=== PATIENT | female | born 1965 | race Caucasian/White ===

== ENCOUNTER 2024-10-03 17:13 | Inpatient (IN) | payer OTHER ==
[~2024-10-03] VITALS: Ht 162.6 cm; Wt 95.8 kg
[2024-10-03] MEDS ORDERED: ALBUTEROL FS 2.5 MG/3 ML VIAL.NEB ONE (17:23)
[2024-10-03] MEDS ORDERED: IPRATROPIUM NEB FS 0.5 MG/2.5 ML AMPUL.NEB ONE (17:23)
[2024-10-03] MEDS ORDERED: Magnesium 1GM/D5W 100ML PREMIX 200 ML IV ONE (17:26)
[2024-10-03] MEDS: IPRATROPIUM NEB FS 0.5 MG/2.5 ML AMPUL.NEB NEB ONE (17:35)
[2024-10-03] MEDS: Magnesium 1GM/D5W 100ML PREMIX 200 ML IV ONE (17:35)
[2024-10-03] MEDS: ALBUTEROL FS 2.5 MG/3 ML VIAL.NEB CONTNEB ONE (17:35)
[2024-10-03 17:54] LABS: CALCIUM, SERUM 8.8 mg/dL (8.5-10.1); CREATININE 0.6 mg/dL (0.6-1.3); SODIUM SERUM 134 mmol/L (136-145); UREA NITROGEN, BLOOD 9 mg/dL (7-18)
[2024-10-03 17:58] LABS: PLATELET COUNT (AUTO) 294 K/uL (150-450); RED BLOOD CELL COUNT(AUTO) 4.89 MIL/uL (4.0-5.2); RED CELL DISTRIBUTION WIDTH 15.4 % (11.5-15.0); WHITE BLOOD COUNT (AUTO) 8.6 K/uL (4.3-11.0)
[2024-10-03] MEDS ORDERED: LUMA42CA PO (17:58)
[2024-10-03] MEDS ORDERED: ESCI10TA PO (17:58)
[2024-10-03] MEDS ORDERED: EPIN0.3A4 IM (17:59)
[2024-10-03] MEDS ORDERED: FOLI0.4T6 PO (17:59)
[2024-10-03] MEDS ORDERED: GABA600T12 PO (17:59)
[2024-10-03] MEDS ORDERED: LOPE2CAP40 PO (17:59)
[2024-10-03] MEDS ORDERED: MONT10TA22 PO (17:59)
[2024-10-03] MEDS ORDERED: TRAM50TA2 PO (17:59)
[2024-10-03] MEDS ORDERED: SENN-261 PO (17:59)
[2024-10-03] MEDS ORDERED: ACET-2030 PO (17:59)
[2024-10-03] MEDS ORDERED: QUET50TA PO (17:59)
[2024-10-03] MEDS ORDERED: LEVO50TA PO (17:59)
[2024-10-03] MEDS ORDERED: MAGN400O6 PO (17:59)
[2024-10-03] MEDS ORDERED: CYAN-51 PO (17:59)
[2024-10-03] MEDS ORDERED: OXCA150T13 PO (17:59)
[2024-10-03] MEDS ORDERED: ALBUT2 CONTNEB (17:59)
[2024-10-03 18:01] LABS: ASPARTATE AMINOTRANSFERASE 18 U/L (15-37); TOTAL PROTEIN, SERUM 7.0 g/dL (6.4-8.2)
[2024-10-03 18:06] LABS: ABG BASE EXCESS 1.3 mmol/L (-2.0-3.0); ABG OXYGEN SATURATION 99.5 % (94.0-98.0); ABG PCO2 43.6 mmHg (32.0-45.0); ABG PH 7.401 (7.350-7.450); ABG PO2 473.9 mmHg (83.0-108.0); ABG TOTAL HEMOGLOBIN 15.8 G/dL (12.0-16.0); SET RATE, BG 20.0; SITE, ABG LEFT RADIAL
[2024-10-03 18:16] LABS: LACTIC ACID 2.4 mmol/L (0.4-2.0)
[2024-10-03] MEDS: IV NS 0.9% 1,000 ML BAG IV ONE (19:37)
[2024-10-03] MEDS: CEFTRIAXONE 1GM BAG (ER ONLY) 50 ML IV ONE (19:38)
[2024-10-03] MEDS: AZITHROMYCIN 500 MG in IV D5W 250 ML IV ONE (20:10)
[2024-10-03] MEDS ORDERED: MAGNESIUM HYDROXIDE 30 ML UDC PO PRN (20:30)
[2024-10-03] MEDS ORDERED: ACETAMINOPHEN 325 MG TABLET PO PRN (20:30)
[2024-10-03] MEDS ORDERED: ONDANSETRON HCL/PF 4 MG/2 ML VIAL IVP PRN (20:30)
[2024-10-03] MEDS ORDERED: MAG HYDROX/AL HYDROX/SIMETH 30 ML UDC PO PRN (20:30)
[2024-10-03 21:51] LABS: AMPHETAMINE, URINE NEGATIVE (NEGATIVE); BARBITURATE, URINE NEGATIVE (NEGATIVE); BENZODIAZEPINE, URINE NEGATIVE (NEGATIVE); CANNABINOID, URINE NEGATIVE (NEGATIVE); COCCAINE, URINE NEGATIVE (NEGATIVE); OPIATE, URINE NEGATIVE (NEGATIVE)
[2024-10-04] VITALS (21 sets, daily range): BP systolic 110–138; BP diastolic 60–93; TEMP 97.3–98; O2SAT 94–100
[2024-10-04] MEDS ORDERED: ENOXAPARIN SODIUM 40 MG/0.4 ML DISP.SYRIN SQ ONE (00:30)
[2024-10-04] MEDS: ENOXAPARIN SODIUM 40 MG/0.4 ML DISP.SYRIN SQ SCH (00:41)
[2024-10-04] MEDS: IV NS 0.9% 1,000 ML IV PRN (00:43)
[2024-10-04] MEDS ORDERED: ALBUTEROL FS 2.5 MG/3 ML VIAL.NEB ONE (02:02)
[2024-10-04] MEDS ORDERED: IPRATROPIUM NEB FS 0.5 MG/2.5 ML AMPUL.NEB ONE (02:02)
[2024-10-04] MEDS: ALBUTEROL FS 2.5 MG/3 ML VIAL.NEB NEB PRN (02:07)
[2024-10-04] MEDS: IPRATROPIUM NEB FS 0.5 MG/2.5 ML AMPUL.NEB NEB PRN (02:07)
[2024-10-04 06:35] LABS: PLATELET COUNT (AUTO) 280 K/uL (150-450); RED BLOOD CELL COUNT(AUTO) 4.74 MIL/uL (4.0-5.2); RED CELL DISTRIBUTION WIDTH 15.6 % (11.5-15.0); WHITE BLOOD COUNT (AUTO) 6.8 K/uL (4.3-11.0)
[2024-10-04 06:49] LABS: LACTIC ACID 1.6 mmol/L (0.4-2.0)
[2024-10-04 07:03] LABS: ASPARTATE AMINOTRANSFERASE 14 U/L (15-37); CALCIUM, SERUM 8.6 mg/dL (8.5-10.1); CREATININE 0.6 mg/dL (0.6-1.3); PHOSPHORUS 3.8 mg/dL (2.5-4.9); SODIUM SERUM 140 mmol/L (136-145); TOTAL PROTEIN, SERUM 6.6 g/dL (6.4-8.2); UREA NITROGEN, BLOOD 7 mg/dL (7-18)
[2024-10-04 07:24] LABS: NT-PRO BNP 77 pg/mL (0-125)
[2024-10-04 07:43] LABS: ABG BASE EXCESS 1.0 mmol/L (-2.0-3.0); ABG OXYGEN SATURATION 96.8 % (94.0-98.0); ABG PCO2 47.3 mmHg (32.0-45.0); ABG PH 7.372 (7.350-7.450); ABG PO2 91.0 mmHg (83.0-108.0); ABG TOTAL HEMOGLOBIN 15.5 G/dL (12.0-16.0); FLOW, BLOOD GAS 2.00 L/min (0.00-30.00); FRACTIONATED INSPIRED OXYGEN 28.0 %; SITE, ABG RIGHT RADIAL
[2024-10-04] MEDS: PANTOPRAZOLE 40 MG VIAL IV SCH (08:41)
[2024-10-04] MEDS: ALBUTEROL FS 2.5 MG/3 ML VIAL.NEB NEB SCH (10:20)
[2024-10-04] MEDS: IPRATROPIUM NEB FS 0.5 MG/2.5 ML AMPUL.NEB NEB SCH (11:00)
[2024-10-04] MEDS: AZITHROMYCIN 500 MG in IV D5W 250 ML IV SCH (19:08)
[2024-10-04] MEDS: CEFTRIAXONE 1 G in IV D5W 50 ML IV SCH (20:18)
[2024-10-04] MEDS: TRAZODONE 50 MG TABLET PO PRN (20:42)
[2024-10-05] VITALS (16 sets, daily range): BP systolic 119–129; BP diastolic 60–77; TEMP 97.3–97.9; O2SAT 92–99
[2024-10-05] MEDS: PANTOPRAZOLE 40 MG TABLET.DR PO SCH (08:53)
[2024-10-05] MEDS: AZITHROMYCIN 250 MG TABLET PO SCH (18:22)
[2024-10-06] VITALS (7 sets, daily range): BP systolic 120; BP diastolic 68; TEMP 98.6; O2SAT 92–98
[2024-10-06] MEDS ORDERED: FLUT1BLS6 IH (11:10)
[2024-10-06] MEDS ORDERED: PRED20TA PO (11:11)
== END 2024-10-06 14:43 | DRG 140 ==
LOC: ER 17:18 → ICU 10-04 08:08 → MED 10-04 13:46 → TELE 10-04 14:15 → MED 10-05 14:42
PROVIDERS: ADMIT Nurse Practitioner Family; ATTEND Nurse Practitioner Acute Care
PROC: 5A09357 Assistance with Respiratory Ventilation, Less than 24 Consecutive Hours, Continuous Positive Airway Pressure (ICD-10-PCS; principal; 2024-10-04)
DX: J44.1 Chronic obstructive pulmonary disease with (acute) exacerbation (principal); J96.01 Acute respiratory failure with hypoxia; D68.59 Other primary thrombophilia; E87.1 Hypo-osmolality and hyponatremia; E87.20 Acidosis, unspecified; R53.1 Weakness; R26.9 Unspecified abnormalities of gait and mobility; Z91.018 Allergy to other foods; Z79.51 Long term (current) use of inhaled steroids; Z79.890 Hormone replacement therapy; Z79.899 Other long term (current) drug therapy; F17.200 Nicotine dependence, unspecified, uncomplicated; E66.9 Obesity, unspecified; Z68.36 Body mass index [BMI] 36.0-36.9, adult; E03.9 Hypothyroidism, unspecified; G47.33 Obstructive sleep apnea (adult) (pediatric); Z85.118 Personal history of other malignant neoplasm of bronchus and lung
CPT/HCPCS: 36415; 36600; 71045-TC; 71250-TC; 80048-TC; 80076-TC; 82803-TC; 82962-TC; 83605-TC; 83735-TC; 83880; 84100-TC; 84484-TC; 85025-TC; 85378-TC; 87040-TC; 87081-TC; 94761-TC; 94799-TC; A4223; G0378; J0456; J0696; J1650; J2470; J2919; J3475; J7030; J7040; J7060

== ENCOUNTER 2024-11-17 22:37 | Inpatient (IN) | payer OTHER ==
[~2024-11-17] VITALS: Ht 154.9 cm; Wt 95.7 kg
[~2024-11-17 22:37] MED LIST: ACET-2030 PO; ALBUT2 CONTNEB; CYAN-51 PO; EPIN0.3A4 IM; ESCI10TA PO; FLUT1BLS6 IH; FOLI0.4T6 PO; GABA600T12 PO; LEVO50TA PO; LOPE2CAP40 PO; LUMA42CA PO; MAGN400O6 PO; MONT10TA22 PO; OXCA150T13 PO; PRED20TA PO; QUET50TA PO; SENN-261 PO; TRAM50TA2 PO
[2024-11-18] VITALS (13 sets, daily range): BP systolic 123–149; BP diastolic 65–80; TEMP 97.3–98.6; O2SAT 93–98
[2024-11-18] MEDS: ALBUTEROL FS 2.5 MG/3 ML VIAL.NEB NEB ONE ×2 (00:10→01:43)
[2024-11-18] MEDS ORDERED: ALBUTEROL FS 2.5 MG/3 ML VIAL.NEB ONE ×2 (00:11→01:46)
[2024-11-18 00:16] LABS: PLATELET COUNT (AUTO) 262 K/uL (150-450); RED BLOOD CELL COUNT(AUTO) 4.45 MIL/uL (4.0-5.2); RED CELL DISTRIBUTION WIDTH 14.3 % (11.5-15.0); WHITE BLOOD COUNT (AUTO) 5.7 K/uL (4.3-11.0)
[2024-11-18 00:22] LABS: CALCIUM, SERUM 8.7 mg/dL (8.5-10.1); CREATININE 0.6 mg/dL (0.6-1.3); SODIUM SERUM 139.0 mmol/L (136-145); UREA NITROGEN, BLOOD 5.0 mg/dL (7-18)
[2024-11-18] MEDS: IPRATROPIUM NEB FS 0.5 MG/2.5 ML AMPUL.NEB NEB ONE (01:43)
[2024-11-18] MEDS ORDERED: IPRATROPIUM NEB FS 0.5 MG/2.5 ML AMPUL.NEB ONE (01:46)
[2024-11-18] MEDS ORDERED: MAG HYDROX/AL HYDROX/SIMETH 30 ML UDC PO PRN (04:30)
[2024-11-18] MEDS ORDERED: MAGNESIUM HYDROXIDE 30 ML UDC PO PRN (04:30)
[2024-11-18] MEDS ORDERED: ONDANSETRON HCL/PF 4 MG/2 ML VIAL IVP PRN (04:30)
[2024-11-18] MEDS: LEVOTHYROXINE SODIUM 50 MCG TABLET PO SCH (06:42)
[2024-11-18] MEDS: PANTOPRAZOLE 40 MG TABLET.DR PO SCH (06:42)
[2024-11-18 07:22] LABS: PLATELET COUNT (AUTO) 266 K/uL (150-450); RED BLOOD CELL COUNT(AUTO) 4.51 MIL/uL (4.0-5.2); RED CELL DISTRIBUTION WIDTH 14.4 % (11.5-15.0); WHITE BLOOD COUNT (AUTO) 5.5 K/uL (4.3-11.0)
[2024-11-18 07:34] LABS: CALCIUM, SERUM 9.1 mg/dL (8.5-10.1); CREATININE 0.7 mg/dL (0.6-1.3); PHOSPHORUS 4.2 mg/dL (2.5-4.9); SODIUM SERUM 138.0 mmol/L (136-145); UREA NITROGEN, BLOOD 6.0 mg/dL (7-18)
[2024-11-18] MEDS ORDERED: [UNRECOGNIZED DRUG - CODE] PO (08:00)
[2024-11-18] MEDS ORDERED: IPRA3AMP23 IH (08:00)
[2024-11-18] MEDS ORDERED: NEOM1OIN15 TP (08:00)
[2024-11-18] MEDS ORDERED: FLUT1BLS IH (08:00)
[2024-11-18] MEDS ORDERED: DOCU100C36 PO (08:00)
[2024-11-18] MEDS ORDERED: TIOT18CA3 IH (08:00)
[2024-11-18] MEDS ORDERED: OMEG-167 PO (08:00)
[2024-11-18] MEDS ORDERED: MELA3TAB41 PO (08:00)
[2024-11-18] MEDS ORDERED: ACET325T53 PO (08:00)
[2024-11-18] MEDS ORDERED: FLUT1DIS3 IH (08:00)
[2024-11-18] MEDS: CYANOCOBALAMIN 500 MCG TABLET PO SCH (08:08)
[2024-11-18] MEDS: FOLIC ACID 1 MG TABLET PO SCH (08:09)
[2024-11-18] MEDS: GABAPENTIN 300 MG CAPSULE PO SCH (08:09)
[2024-11-18] MEDS: ESCITALOPRAM OXALATE (10 MG) 10 MG TABLET PO SCH (08:09)
[2024-11-18] MEDS: OXCARBAZEPINE 150 MG TABLET PO SCH (08:09)
[2024-11-18] MEDS: ENOXAPARIN SODIUM 40 MG/0.4 ML DISP.SYRIN SQ SCH (08:11)
[2024-11-18] MEDS: HYDROCORTISONE ACETATE 25 MG/SUPP.RECT SUPP.RECT RC SCH (10:31)
[2024-11-18] MEDS: ACETAMINOPHEN 325 MG TABLET PO PRN (10:36)
[2024-11-18] MEDS ORDERED: LIDOCAINE 2% JEL UROJET 10 ML MM ONE (20:00)
[2024-11-18] MEDS: ALBUTEROL FS 2.5 MG/0.5 ML VIAL.NEB NEB PRN (20:37)
[2024-11-18] MEDS: IPRATROPIUM NEB FS 0.5 MG/2.5 ML AMPUL.NEB NEB PRN (20:38)
[2024-11-18] MEDS ORDERED: LUMATEPERONE TOSYLATE 42 MG PO SCH (22:00)
[2024-11-18] MEDS: QUETIAPINE FUMARATE 25 MG TABLET PO SCH (22:06)
[2024-11-18] MEDS: SENNOSIDES 8.6 MG TABLET PO SCH (22:07)
[2024-11-18] MEDS: MONTELUKAST SODIUM (10MG) 10 MG TABLET PO SCH (22:07)
[2024-11-18] MEDS: LIDOCAINE 2% JEL UROJET 10 ML MM PRN (23:04)
[2024-11-19] VITALS (7 sets, daily range): BP systolic 115–117; BP diastolic 70–80; TEMP 97.9; O2SAT 94–98
[2024-11-19] MEDS ORDERED: ALBUTEROL FS 2.5 MG/0.5 ML VIAL.NEB NEB PRN (11:00)
[2024-11-19] MEDS ORDERED: IPRATROPIUM NEB FS 0.5 MG/2.5 ML AMPUL.NEB NEB PRN (11:00)
[2024-11-19] MEDS ORDERED: LIDO30CR47 TP (11:02)
[2024-11-19] MEDS ORDERED: HYDR25SU33 RC (11:02)
== END 2024-11-19 17:59 | DRG 140 ==
LOC: ER 22:44 → MEDSG1 11-18 03:57
PROVIDERS: ADMIT Nurse Practitioner Acute Care; ATTEND Nurse Practitioner Acute Care
DX: J44.1 Chronic obstructive pulmonary disease with (acute) exacerbation (principal); E03.9 Hypothyroidism, unspecified; K64.8 Other hemorrhoids; Z79.899 Other long term (current) drug therapy; E66.9 Obesity, unspecified; F31.9 Bipolar disorder, unspecified; F41.9 Anxiety disorder, unspecified; Z20.822 Contact with and (suspected) exposure to COVID-19; Z85.118 Personal history of other malignant neoplasm of bronchus and lung; R26.9 Unspecified abnormalities of gait and mobility; Z82.49 Family history of ischemic heart disease and other diseases of the circulatory system; Z83.3 Family history of diabetes mellitus; Z91.018 Allergy to other foods; Z79.51 Long term (current) use of inhaled steroids; Z79.890 Hormone replacement therapy; F17.200 Nicotine dependence, unspecified, uncomplicated; G47.33 Obstructive sleep apnea (adult) (pediatric); I10 Essential (primary) hypertension; K64.4 Residual hemorrhoidal skin tags
CPT/HCPCS: 36415; 71045-TC; 80048-TC; 82306; 83735-TC; 84100-TC; 85025-TC; 87081-TC; 94799-TC; G0378; J1650; J3490

== ENCOUNTER 2024-11-23 17:21 | Emergency (ER) | payer OTHER ==
[~2024-11-23] VITALS: Ht 154.9 cm; Wt 93.4 kg
[~2024-11-23 17:21] MED LIST changes: -ACET-2030 PO; +ACET325T53 PO; -ALBUT2 CONTNEB; -CYAN-51 PO; +DOCU100C36 PO; +FLUT1BLS IH; -FLUT1BLS6 IH; +FLUT1DIS3 IH; -FOLI0.4T6 PO; +HYDR25SU33 RC; +IPRA3AMP23 IH; -LEVO50TA PO; +LIDO30CR47 TP; -LOPE2CAP40 PO; -LUMA42CA PO; -MAGN400O6 PO; +MELA3TAB41 PO; +NEOM1OIN15 TP; +OMEG-167 PO; -PRED20TA PO; -SENN-261 PO; +TIOT18CA3 IH; +[UNRECOGNIZED DRUG - CODE] PO
[2024-11-23 17:27] VITALS: BP 114/66; TEMP 98.3; O2SAT 100
[2024-11-23] MEDS ORDERED: IBUP-1957 PO (20:03)
== END 2024-11-23 21:45 ==
LOC: ER 17:28
DX: K62.3 Rectal prolapse (principal); F31.9 Bipolar disorder, unspecified; F41.9 Anxiety disorder, unspecified; J44.9 Chronic obstructive pulmonary disease, unspecified; Z79.1 Long term (current) use of non-steroidal anti-inflammatories (NSAID); Z79.51 Long term (current) use of inhaled steroids; Z79.899 Other long term (current) drug therapy; Z85.118 Personal history of other malignant neoplasm of bronchus and lung; Z87.19 Personal history of other diseases of the digestive system; Z87.39 Personal history of other diseases of the musculoskeletal system and connective tissue; Z91.018 Allergy to other foods

== ENCOUNTER 2024-11-30 09:18 | Emergency (ER) | payer OTHER ==
[~2024-11-30] VITALS: Ht 154.9 cm; Wt 95.7 kg
[~2024-11-30 09:18] MED LIST changes: +IBUP-1957 PO
[2024-11-30] MEDS ORDERED: IBUPROFEN 600 MG TABLET ONE (09:48)
[2024-11-30] MEDS: IBUPROFEN 600 MG TABLET PO ONE (10:00)
[2024-11-30 14:00] VITALS: BP 130/70; TEMP 98.5; O2SAT 96
== END 2024-11-30 14:01 | disposition home or self-care (01) ==
LOC: ER 09:23
DX: S42.462A Displaced fracture of medial condyle of left humerus, initial encounter for closed fracture (principal); F41.9 Anxiety disorder, unspecified; J44.9 Chronic obstructive pulmonary disease, unspecified; F31.9 Bipolar disorder, unspecified; Z79.1 Long term (current) use of non-steroidal anti-inflammatories (NSAID); Z79.51 Long term (current) use of inhaled steroids; Z85.118 Personal history of other malignant neoplasm of bronchus and lung; Z98.890 Other specified postprocedural states; Z79.899 Other long term (current) drug therapy; W01.0XXA Fall on same level from slipping, tripping and stumbling without subsequent striking against object, initial encounter; Y93.89 Activity, other specified; Y92.89 Other specified places as the place of occurrence of the external cause; Y99.8 Other external cause status
CPT/HCPCS: 73080-TC

== ENCOUNTER 2024-12-04 17:35 | Emergency (ER) | payer OTHER ==
[~2024-12-04] VITALS: Ht 154.9 cm; Wt 95.3 kg
[2024-12-04 17:57] VITALS: O2SAT 98
[2024-12-04] MEDS: ALBUTEROL FS 2.5 MG/3 ML VIAL.NEB CONTNEB ONE (17:57)
[2024-12-04] MEDS: IPRATROPIUM NEB FS 0.5 MG/2.5 ML AMPUL.NEB NEB ONE (17:57)
[2024-12-04] MEDS ORDERED: IPRATROPIUM NEB FS 0.5 MG/2.5 ML AMPUL.NEB ONE (18:00)
[2024-12-04] MEDS ORDERED: ALBUTEROL FS 2.5 MG/3 ML VIAL.NEB ONE (18:00)
[2024-12-04 18:18] VITALS: O2SAT 98
[2024-12-04 18:38] LABS: PLATELET COUNT (AUTO) 287 K/uL (150-450); RED BLOOD CELL COUNT(AUTO) 4.54 MIL/uL (4.0-5.2); RED CELL DISTRIBUTION WIDTH 13.9 % (11.5-15.0); WHITE BLOOD COUNT (AUTO) 8.4 K/uL (4.3-11.0)
[2024-12-04 18:44] LABS: CALCIUM, SERUM 9.0 mg/dL (8.5-10.1); CREATININE 0.8 mg/dL (0.6-1.3); SODIUM SERUM 141.0 mmol/L (136-145); UREA NITROGEN, BLOOD 7.0 mg/dL (7-18)
[2024-12-04] MEDS ORDERED: IPRA3AMP23 IH (18:52)
[2024-12-05 00:34] VITALS: BP 136/84; TEMP 98.3; O2SAT 99
== END 2024-12-05 00:35 | disposition home or self-care (01) ==
LOC: ER 17:42
DX: J44.1 Chronic obstructive pulmonary disease with (acute) exacerbation (principal); F41.9 Anxiety disorder, unspecified; F31.9 Bipolar disorder, unspecified; Z79.1 Long term (current) use of non-steroidal anti-inflammatories (NSAID); Z79.51 Long term (current) use of inhaled steroids; Z79.899 Other long term (current) drug therapy; Z85.118 Personal history of other malignant neoplasm of bronchus and lung; Z98.890 Other specified postprocedural states; Z99.81 Dependence on supplemental oxygen
CPT/HCPCS: 99285; 71045; 93005; 85025; 80048; 36415; 94799; 94640; J7512

== ENCOUNTER 2024-12-09 01:29 | Emergency (ER) | payer OTHER ==
[~2024-12-09] VITALS: Ht 154.9 cm; Wt 95.3 kg
[2024-12-09] MEDS: IPRATROPIUM NEB FS 0.5 MG/2.5 ML AMPUL.NEB NEB STA (02:35)
[2024-12-09] MEDS: ALBUTEROL FS 2.5 MG/0.5 ML VIAL.NEB NEB STA (02:35)
[2024-12-09] MEDS ORDERED: ALBUTEROL FS 2.5 MG/0.5 ML VIAL.NEB ONE (02:37)
[2024-12-09] MEDS ORDERED: IPRATROPIUM NEB FS 0.5 MG/2.5 ML AMPUL.NEB ONE (02:37)
[2024-12-09 02:40] VITALS: O2SAT 92
[2024-12-09 02:55] VITALS: O2SAT 96
[2024-12-09] MEDS ORDERED: IPRA3AMP23 IH (03:54)
[2024-12-09] MEDS ORDERED: PRED50TA PO (03:54)
[2024-12-09] MEDS ORDERED: ACETAMINOPHEN ES 500 MG TABLET ONE (06:19)
[2024-12-09] MEDS ORDERED: IBUPROFEN 600 MG TABLET ONE (06:19)
[2024-12-09] MEDS: IBUPROFEN 600 MG TABLET PO ONE (06:21)
[2024-12-09] MEDS: ACETAMINOPHEN 325 MG TABLET PO ONE (06:23)
[2024-12-09 06:58] VITALS: BP 113/71; TEMP 97.7; O2SAT 96
== END 2024-12-09 06:58 ==
LOC: ER 01:36
DX: M79.602 Pain in left arm (principal); J44.1 Chronic obstructive pulmonary disease with (acute) exacerbation; F41.9 Anxiety disorder, unspecified; F31.9 Bipolar disorder, unspecified; Z79.1 Long term (current) use of non-steroidal anti-inflammatories (NSAID); Z79.51 Long term (current) use of inhaled steroids; Z79.52 Long term (current) use of systemic steroids; Z79.899 Other long term (current) drug therapy; Z85.118 Personal history of other malignant neoplasm of bronchus and lung; Z98.890 Other specified postprocedural states
CPT/HCPCS: 99284; 71045; 73090; 94640; J7512

== ENCOUNTER 2025-01-23 21:46 | Emergency (ER) | payer OTHER ==
[~2025-01-23] VITALS: Ht 154.9 cm; Wt 95.3 kg
[~2025-01-23 21:46] MED LIST changes: +PRED50TA PO
[2025-01-23] MEDS: IPRATROPIUM NEB FS 0.5 MG/2.5 ML AMPUL.NEB NEB ONE (22:19)
[2025-01-23] MEDS: ALBUTEROL FS 2.5 MG/3 ML VIAL.NEB NEB ONE (22:19)
[2025-01-23] MEDS ORDERED: IPRATROPIUM NEB FS 0.5 MG/2.5 ML AMPUL.NEB ONE ×2 (22:22→22:23)
[2025-01-23] MEDS ORDERED: ALBUTEROL FS 2.5 MG/3 ML VIAL.NEB ONE (22:22)
[2025-01-23 22:24] VITALS: O2SAT 94
[2025-01-23] MEDS ORDERED: PRED50TA PO (22:53)
[2025-01-23 23:24] VITALS: O2SAT 98
[2025-01-24 00:45] VITALS: BP 124/86; TEMP 98.2; O2SAT 98
== END 2025-01-24 01:27 ==
LOC: ER 21:53
DX: J44.1 Chronic obstructive pulmonary disease with (acute) exacerbation (principal); F41.9 Anxiety disorder, unspecified; F31.9 Bipolar disorder, unspecified; F17.200 Nicotine dependence, unspecified, uncomplicated; Z79.1 Long term (current) use of non-steroidal anti-inflammatories (NSAID); Z79.51 Long term (current) use of inhaled steroids; Z79.52 Long term (current) use of systemic steroids; Z79.899 Other long term (current) drug therapy; Z85.118 Personal history of other malignant neoplasm of bronchus and lung; Z98.890 Other specified postprocedural states
CPT/HCPCS: 99285; 94644; J7512